=== PATIENT | female | born 1950 | race Caucasian/White ===

== ENCOUNTER 2017-09-23 09:00 | Day surgery (SDC) | payer OTHER, MEDICARE ==
[~2017-09-23 09:00] MED LIST: ACETAMINOPHEN 1,000 MG/100 ML BTL IV ONE; CEFAZOLIN 2 Gram 2 GM/50 ML BAG IVPB ONE
[2017-09-23] MEDS ORDERED: ROPIVACAINE HCL (NAROPIN) /PF 5MG/ML 20ML VIAL IV ONE (09:01)
[2017-09-23] MEDS ORDERED: SEVOFLURANE 250 ML INH ONE (09:01)
[2017-09-23] MEDS ORDERED: ONDANSETRON HCL IV 4 MG/2 ML VIAL IVP ONE (09:01)
[2017-09-23] MEDS ORDERED: BUPIVACAINE 0.5% W/EPI MPF 30 ML VIAL IVP ONE (09:01)
[2017-09-23] MEDS ORDERED: MIDAZOLAM HCL 2MG/2ML VIAL IV ONE (09:01)
[2017-09-23] MEDS ORDERED: EPHEDRINE SULFATE 50 MG/ML ML IV ONE (09:01)
[2017-09-23] MEDS ORDERED: DEXAMETHASONE 4 MG/ML 1ML VIAL IVP ONE (09:01)
[2017-09-23] MEDS ORDERED: KETOROLAC 30 MG/ML VIAL IVP ONE (09:01)
[2017-09-23] MEDS ORDERED: METHYLPREDNISOLONE 40MG/VIAL IM ONE (09:01)
[2017-09-23] MEDS ORDERED: PROPOFOL 10 MG/ML VIAL IV ONE (09:01)
[2017-09-23] MEDS ORDERED: MORPHINE SULFATE PF 10MG/10ML VIAL IV ONE (09:01)
[2017-09-23] MEDS ORDERED: LIDOCAINE 1% MDV (10MG/ML) 20ML VIAL SQ ONE (09:01)
[2017-09-23 09:16] LABS: BASO % 0.3 % (0-6); EOS % 1.3 % (0-6); GRAN % 52.4 % (47-80); HEMATOCRIT 46.1 % (35.0-47.0); HEMOGLOBIN 15.2 gm/dl (11.6-16.0); LYMPH % 36.5 % (16-45); MEAN CELL VOLUME 92.2 fl (81-97); MEAN CORPUSCULAR HEMOGLOBIN 30.4 pg (27-33); MONO % 9.5 % (0-9); PLATELET COUNT 347 K/uL (130-400); WHITE BLOOD COUNT W/O DIFF 7.2 K/uL (4.2-12.2)
[2017-09-23 09:32] LABS: BLOOD UREA NITROGEN 14 mg/dL (8-23); CREATININE 0.5 mg/dL (0.5-0.9); EST GLOMERULAR FILTRATION RATE > 60 mL/min; GLUCOSE,RANDOM 90 mg/dL (74-109)
--- NOTE | 2017-09-24 05:38 | Operative Note ---
DATE OF SURGERY: 09/23/2017 PREOPERATIVE DIAGNOSIS: TEAR OF THE ROTATOR CUFF ON THE RIGHT. POSTOPERATIVE DIAGNOSES: 1. LARGE TEAR OF THE ROTATOR CUFF, ACUTE ON CHRONIC, RIGHT SHOULDER. 2. SYNOVITIS, RIGHT SHOULDER. 3. ARTHROSIS, RIGHT DISTAL CLAVICLE. 4. SUBACROMIAL IMPINGEMENT, RIGHT SHOULDER. 5. ADHESIVE CAPSULITIS, RIGHT SHOULDER. PROCEDURE: 1. PARTIAL REPAIR OF A CHRONICALLY ACUTE ON CHRONIC TEAR OF THE ROTATOR CUFF ON THE RIGHT. 2. RIGHT SHOULDER ARTHROSCOPY WITH INTRA-ARTICULAR DEBRIDEMENT. 3. RIGHT SHOULDER OPEN ACROMIOPLASTY, CA LIGAMENT RESECTION, AND SUBACROMIAL BURSECTOMY. 4. RIGHT SHOULDER DISTAL CLAVICLE RESECTION. 5. MANIPULATION, RIGHT SHOULDER. STAFF SURGEON: UZIEL JADE M.D. ANESTHESIA: GENERAL. PREPARATION: CHLORAPREP. INDIVIDUAL CONSIDERATIONS: NONE. PROCEDURE: The patient was taken to the Operating Room and placed supine on the operating table. She had a successful induction of a general anesthetic. She was then placed in a semi-seated beach chair position and her right arm and shoulder were prepped and draped in the usual fashion. Examination under anesthesia showed that she had a solid point of abduction at about 80 to 90 degrees. I was even able to push through that manipulator into full abduction and rotation and forward flexion. She had posterior portal identified for arthroscopy. Skin was infiltrated with 0.5% Marcaine with Epinephrine prior. An #18-gauge spinal needle was placed in the joint and the joint was inflated with normal saline with a 60 mL syringe. A stab wound was made and a blunt-tipped trocar for the scope was placed inside the joint and the joint was irrigated out. An anterior accessory portal was then made just inferior to the intact long head of the biceps tendon in a retrograde fashion with a Wissinger ezequiel and the joint was irrigated out. The patient had diffuse synovitis, which was debrided with a shaver. The glenohumeral joint was normal. She had a massive tear of the rotator cuff involving pretty much all of the supraspinatus, infraspinatus, and portions of the teres minor. Subscap luckily was intact. There was synovitis in the pouch, which was debrided. After irrigation, portals were closed with mavis. The labrum was intact. The patient had an anterior approach to the subacromial space and distal clavicle. The skin was again infiltrated with 0.5% Marcaine with Epinephrine prior. Sharp dissection was carried down through the skin and subcutaneous tissues. Small veins were coagulated with a Bovie. An anterior deltoid interval was developed and care was taken not to split the deltoid more than about 4 cm distal to the anterior tip of the acromion to prevent injury to the axillary nerve. Once in the subacromial space, the patient had a large pardo of fluid. She had downsloping acromion and spurs at the AC joint. The deltoid was then taken subperiosteally off the anterior aspect of the acromion, over the top of the intact CA ligament, and off the anterior aspect of the degenerated distal clavicle. The distal clavicle was resected with an oscillating saw, CA ligament was resected with a Bovie. I did an anterior acromioplasty taking about 6 or 7 mm anteriorly then tapering to a wedge posteromedially to include the spurs at the AC joint, and the undersurface was smoothed with a rasp. A very thick bursa was debrided out. The patient had a massive tear of the rotator cuff, it looked more acute on chronic with the chronic being more posteriorly. Basically, the subscap was intact but the supraspinatus was basically completely off except for maybe a small area anteriorly. Infraspinatus was gone and most of teres minor was gone. I was able to mobilize, I would say, just about two-thirds of the supraspinatus. I debrided back to good bleeding tendon and reattached the tuberosity after freshening up the tuberosity with a bur and making a small trough. I placed retention sutures in the tendon and brought it into the trough and sutured through holes distally. This restored this but again I would say I had two-thirds of the supraspinatus and maybe one-third of the remaining teres minor but the infraspinatus was basically not being able to repair because there just wasn't sufficient tendon. After irrigation, I placed the shoulder through a full range of motion to ensure no further impingement. After irrigation again, the deltoid was reattached to the remaining acromion with multiple interrupted #2 Vicryl going directly through the bony acromion. The periosteal cuff and distal clavicle were closed with a running #2 Vicryl, the anterior deltoid interval was closed with a running #1 Vicryl. The subcut was closed with 2-0 plus Vicryl and the skin was closed with running 3-0 quill. I then injected about 20 mL of 0.5% Marcaine with Epinephrine along with 10 mg of Morphine into the subacromial space and a sterile Bulkee compressive dressing and sling were applied. The patient tolerated the procedures well. Needle and sponge counts were correct. Estimated blood loss was minimal and she was taken back to Recovery in good condition. There were no complications. JOB NUMBER: [id number] MTDD
== END 2017-09-23 14:20 | disposition home or self-care (01) ==
LOC: SUR 09:00
PROVIDERS: ATTEND Orthopaedic Surgery
DX: M75.121 Complete rotator cuff tear or rupture of right shoulder, not specified as traumatic (principal); M19.011 Primary osteoarthritis, right shoulder; M65.811 Other synovitis and tenosynovitis, right shoulder; M75.41 Impingement syndrome of right shoulder; M75.01 Adhesive capsulitis of right shoulder; I10 Essential (primary) hypertension
CPT/HCPCS: 23412; 23130; 23700; 29822; 01610; 85025; 80048; J1885; J2405; J0690; J2795; J1030